=== PATIENT | male | born 2000 | race Caucasian/White ===

== ENCOUNTER 2024-05-08 19:47 | Emergency (ER) | payer SELFPAY ==
[~2024-05-08] VITALS: Ht 185.4 cm; Wt 63.0 kg
[2024-05-08 19:52] VITALS: BP_SYST 105; PULSE 74; RESP 16; TEMP 97.9; O2SAT 100
[2024-05-08] MEDS: NACL 0.9% 1,000 ML IV ONE (20:26)
[2024-05-08] MEDS ORDERED: NAPR-1172 PO (20:55)
[2024-05-08 20:57] VITALS: BP_SYST 110; PULSE 70; RESP 16; TEMP 97.9; O2SAT 100
== END 2024-05-08 20:57 | disposition home or self-care (01) ==
LOC: SED 19:47
DX: S60.221A Contusion of right hand, initial encounter (principal); R55 Syncope and collapse; Z79.899 Other long term (current) drug therapy; W23.0XXA Caught, crushed, jammed, or pinched between moving objects, initial encounter; Y93.89 Activity, other specified; Y92.89 Other specified places as the place of occurrence of the external cause; Y99.8 Other external cause status
CPT/HCPCS: 99283; 96360; 73140; J7030